=== PATIENT | female | born 1965 | race Caucasian/White ===

== ENCOUNTER 2016-09-05 17:55 | Emergency (ER) | payer MEDICAID ==
[~2016-09-05] VITALS: Ht 152.4 cm; Wt 47.0 kg
[2016-09-05 17:56] VITALS: Ht 152.4 cm; Wt 47.0 kg
[2016-09-05 18:47] LABS: ABNORMAL IP MESSAGE 1; BASOPHILS % 0.5 % (0.0-2.0); EOSINOPHILS # 0.1 10^3/ul (0.0-0.5); EOSINOPHILS % 1.9 % (0.0-7.0); HEMATOCRIT 38.8 % (37.0-47.0); HEMOGLOBIN 13.2 g/dl (12.0-16.0); LYMPHOCYTES # 0.5 10^3/ul (0.8-2.9); LYMPHOCYTES % 12.3 % (15.0-51.0); MEAN CORPUSCULAR HEMOGLOBIN 28.9 pg (29.0-33.0); MEAN CORPUSCULAR VOLUME 84.9 fl (82.0-101.0); MEAN PLATELET VOLUME 9.9 fl (7.4-10.4); MONOCYTE # 0.2 10^3/ul (0.3-0.9); MONOCYTES % 5.1 % (0.0-11.0); NEUTROPHILS % 79.9 % (39.0-77.0); PLATELET COUNT 309 10^3/UL (140-415); RED BLOOD COUNT 4.57 10^6/ul (4.20-5.40); RED CELL DISTRIBUTION WIDTH 11.9 % (11.5-14.5); WHITE BLOOD COUNT 3.7 10^3/ul (4.8-10.8)
[2016-09-05 18:50] LABS: ADD SCAN DIFF NO
[2016-09-05 18:52] LABS: ADD UMIC NO; UR ASCORBIC ACID NEGATIVE (NEGATIVE); UR BILIRUBIN (Dip) NEGATIVE (NEGATIVE); UR BLOOD (Dip) NEGATIVE (NEGATIVE); UR CLARITY CLEAR (CLEAR); UR COLOR STRAW (YELLOW); UR GLUCOSE (Dip) NEGATIVE (NEGATIVE); UR KETONES (Dip) NEGATIVE (NEGATIVE); UR LEUKOCYTE ESTERASE (Dip) NEGATIVE Leu/ul (NEGATIVE); UR NITRITE (Dip) NEGATIVE (NEGATIVE); UR SPECIFIC GRAVITY (Dip) 1.003 (1.003-1.030); UR TOTAL PROTEIN (Dip) NEGATIVE (NEGATIVE); UR UROBILINOGEN (Dip) NEGATIVE (NEGATIVE)
[2016-09-05 19:10] LABS: ALBUMIN 4.8 g/dl (3.3-4.9); BILIRUBIN,INDIRECT 0.2 mg/dl (0-1.1); BILIRUBIN,TOTAL 0.2 mg/dl (0.2-1.3); CALCIUM 9.3 mg/dl (8.4-10.2); CREATININE 0.82 mg/dl (0.44-1.00); POTASSIUM 3.7 mmol/L (3.5-5.1)
[2016-09-05 19:11] LABS: ALBUMIN/GLOBULIN RATIO 1.71; TOTAL PROTEIN 7.6 g/dl (6.1-8.1)
[2016-09-05] MEDS ORDERED: IBUP-1542 PO (19:26)
[2016-09-05] MEDS ORDERED: TRAM50TA2 PO (19:31)
--- NOTE | 2016-09-05 19:35 | ERD ---
ER Documentation Chief Complaint Date/Time DATE: 09/05/16 TIME: 19:32 Chief Complaint swollen glands @ neck area HPI This is a 50-year-old female presents to the ER with a swollen lymph nodes on her neck and entire body pain. Patient states that this is been going on for the last 2 days. Patient denies any cough or cold symptoms she denies any sore throat or ear pain. Patient denies any fevers or chills. She denies any night sweats or weight loss. Patient denies any abdominal pain she denies any nausea vomiting or diarrhea. Patient denies any trauma. Patient states that she has gotten regular primary care and has gotten her regular mammograms and other preventative exams. ROS 12 point review of systems was done, all negative except per HPI. Medications Home Meds Active Scripts Tramadol HCl (Tramadol HCl) 50 Mg Tablet, 50 MG PO Q4 Y for PAIN, #20 TAB Prov:PAULO BELCHERNA C 09/05/16 Ibuprofen* (Motrin*) 600 Mg Tab, 600 MG PO Q6, #30 TAB Prov:ADRIANNE BELCHER 09/05/16 Allergies Allergies: Coded Allergies: No Known Allergy (Unverified , 09/05/16) PMhx/Soc Medical and Surgical Hx: pt denies Medical Hx, pt denies Surgical Hx Hx Alcohol Use: No Hx Substance Use: No Hx Tobacco Use: No Smoking Status: Never smoker Physical Exam Vitals Vital Signs Date Time Temp Pulse Resp B/P Pulse Ox O2 Delivery O2 Flow Rate FiO2 09/05/16 17:56 99.5 81 19 124/57 97 Physical Exam GENERAL: The patient is well developed and appropriate for usual state of health , in no apparent distress. HEENT: Atraumatic. Conjunctivae are pink. Pupils equal, round, and reactive to light. Extraocular muscles are grossly intact. Bilateral tympanic membranes are clear with no evidence of erythema, effusion or dulling of the light reflex. The oropharynx is clear with no erythema or exudates. NECK: Anterior cervical chain, posterior cervical chain, occipital lymphadenopathy. CHEST: Clear to auscultation bilaterally. There are no rales, wheezes or rhonchi. HEART: Regular rate and rhythm. No murmurs, clicks, rubs or gallops. ABDOMEN: Soft, nontender and nondistended. NEURO: Alert and oriented. Result Diagram: 09/05/16 1832 09/05/16 1832 Results 24 hrs Laboratory Tests Test 09/05/16 18:27 09/05/16 18:32 Urine Color STRAW Urine Clarity CLEAR Urine pH 7.0 Urine Specific Stover 1.003 Urine Ketones NEGATIVEmg/dL Urine Nitrite NEGATIVEmg/dL Urine Bilirubin NEGATIVEmg/dL Urine Urobilinogen NEGATIVEmg/dL Urine Leukocyte Esterase NEGATIVELeu/ul Urine Hemoglobin NEGATIVEmg/dL Urine Glucose NEGATIVEmg/dL Urine Total Protein NEGATIVEmg/dl White Blood Count 3.710^3/ul Red Blood Count 4.5710^6/ul Hemoglobin 13.2g/dl Hematocrit 38.8% Mean Corpuscular Volume 84.9fl Mean Corpuscular Hemoglobin 28.9pg Mean Corpuscular Hemoglobin Concent 34.0g/dl Red Cell Distribution Width 11.9% Platelet Count 38310^3/UL Mean Platelet Volume 9.9fl Neutrophils % 79.9% Lymphocytes % 12.3% Monocytes % 5.1% Eosinophils % 1.9% Basophils % 0.5% Nucleated Red Blood Cells % 0.0/100WBC Neutrophils # 3.010^3/ul Lymphocytes # 0.510^3/ul Monocytes # 0.210^3/ul Eosinophils # 0.110^3/ul Basophils # 0.010^3/ul Nucleated Red Blood Cells # 0.010^3/ul Sodium Level 140mmol/L Potassium Level 3.7mmol/L Chloride Level 101mmol/L Carbon Dioxide Level 30mmol/L Anion Gap 13 Blood Urea Nitrogen 14mg/dl Creatinine 0.82mg/dl Glucose Level 116mg/dl Calcium Level 9.3mg/dl Total Bilirubin 0.2mg/dl Direct Bilirubin 0.00mg/dl Indirect Bilirubin 0.2mg/dl Aspartate Amino Transf (AST/SGOT) 30IU/L Alanine Aminotransferase (ALT/SGPT) 44IU/L Alkaline Phosphatase 96IU/L Total Protein 7.6g/dl Albumin 4.8g/dl Globulin 2.80g/dl Albumin/Globulin Ratio 1.71 Procedures/MDM This is a 50-year-old female presents to the ER with swollen lymph nodes and entire body pain. At this time there is no evidence of infection, anemia, electrolyte abnormality, urinary tract infection. Patient's physical examination is benign. This may be secondary to a viral process versus malignancy versus autoimmune disease. Patient is to follow-up with her primary care doctor within 1-2 days or return to ER sooner if symptoms worsen. She will be sent home with ibuprofen and tramadol for the pain. My medical decision making was shared with the patient she understands and agrees with plan. Departure Diagnosis: Primary Impression: Lymphadenopathy Condition: Stable Patient Instructions: Myalgias Additional Instructions: Call your primary care doctor TOMORROW for an appointment during the next 1-2 days.See the doctor sooner or return here if your condition worsens before your appointment time. EVERYTHING LOOKS NORMAL TODAY. IF LYMPH NODES CONTINUE TO BE SWOLLEN FURTHER TESTING NEEDS TO BE DONE. ALSO, PLEASE REMEMBER TO GET ROUTINE SCREENINGS SUCH MAMMOGRAM AND YEARLY PHYSICAL. ADRIANNE BELCHER Sep 05, 2016 19:35
== END 2016-09-05 19:40 | disposition home or self-care (01) ==
LOC: FTE 17:55
DX: R59.1 Generalized enlarged lymph nodes (principal)
CPT/HCPCS: 36415; 80053; 81003; 85025; Z7502; 99283

== ENCOUNTER 2016-09-12 21:51 | Emergency (ER) | payer MEDICAID ==
[~2016-09-12] VITALS: Wt 49.0 kg
[~2016-09-12 21:51] MED LIST: IBUP-1542 PO; TRAM50TA2 PO
[2016-09-13] MEDS ORDERED: HYDROCODONE/APAP (5/325) TAB PO ONE
--- NOTE | 2016-09-13 00:06 | ERD ---
ER Documentation Chief Complaint Date/Time DATE: 09/13/16 TIME: 00:02 Chief Complaint LEFT FOOT SWELLING/REDNESS AND FACIAL SWELLING X2WKS WAS SEEN 09/05 HPI 50-year-old female presents to emergency department for persistent redness and swelling of the left lower leg, patient was seen here one week ago for the same problem, patient also on the left patient swelling which has improved. Patient continues to have redness and swelling of the left lower leg, complains of pain on affected areas. Patient denies any fever or chills denies any trauma on affected area. Patient has redness and swelling on the left ankle area, medications were prescribed ibuprofen and tramadol with only mild relief. Patient denies any numbness or tingling. Patient denies any rash in other parts of the body. ROS All systems reviewed and are negative except as per history of present illness. Medications Home Meds Active Scripts Tramadol HCl (Tramadol HCl) 50 Mg Tablet, 50 MG PO Q4 Y for PAIN, #20 TAB Prov:ADRIANNE BELCHER 09/05/16 Ibuprofen* (Motrin*) 600 Mg Tab, 600 MG PO Q6, #30 TAB Prov:ADRIANNE BELCHER 09/05/16 Allergies Allergies: Coded Allergies: No Known Allergy (Unverified , 09/05/16) PMhx/Soc Medical and Surgical Hx: pt denies Medical Hx, pt denies Surgical Hx Hx Alcohol Use: No Hx Substance Use: No Hx Tobacco Use: No Smoking Status: Never smoker FmHx Family History: No coronary disease, No diabetes, No other Physical Exam Vitals Vital Signs Date Time Temp Pulse Resp B/P Pulse Ox O2 Delivery O2 Flow Rate FiO2 09/12/16 21:57 99.5 93 18 129/61 99 Physical Exam GENERAL: The patient is well developed and appropriate for usual state of health, in no apparent distress. CHEST: Clear to auscultation bilaterally. There are no rales, wheezes or rhonchi. HEART: Regular rate and rhythm. No murmurs, clicks, rubs or gallops. No S3 or S4. ABDOMEN: Soft, nontender and nondistended. Good bowel sounds. No rebound or guarding. No gross peritonitis. No gross organomegaly or masses. No Parish sign or McBurney point tenderness. BACK: No midline or flank tenderness. EXTREMITIES: Equal pulses bilaterally. There is no peripheral clubbing, cyanosis or edema. No focal swelling or erythema. Full range of motion. Grossly neurovascularly intact. NEURO: Alert and oriented. Cranial nerves 2-12 intact. Motor strength in all 4 extremities with 5/5 strength. Sensation grossly intact. Normal speech and gait. SKIN: Macular rash in the left ankle area with mild swelling noted, mild tenderness on palpation. No induration noted. No fluctuance noted. The skin is warm and dry. HEMATOLOGIC AND LYMPHATIC: There is no evidence of excessive bruising or lymphedema. No gross cervical, axillary, or inguinal lymphadenopathy. Result Diagram: 09/12/160 09/12/1619 Results 24 hrs Laboratory Tests Test 09/12/16 00:20 White Blood Count 4.310^3/ul Red Blood Count 4.0910^6/ul Hemoglobin 12.0g/dl Hematocrit 34.9% Mean Corpuscular Volume 85.3fl Mean Corpuscular Hemoglobin 29.3pg Mean Corpuscular Hemoglobin Concent 34.4g/dl Red Cell Distribution Width 12.4% Platelet Count 26465^3/UL Mean Platelet Volume 10.2fl Neutrophils % 84.8% Lymphocytes % 8.2% Monocytes % 4.9% Eosinophils % 1.4% Basophils % 0.2% Nucleated Red Blood Cells % 0.0/100WBC Neutrophils # 3.610^3/ul Lymphocytes # 0.410^3/ul Monocytes # 0.210^3/ul Eosinophils # 0.110^3/ul Basophils # 0.010^3/ul Nucleated Red Blood Cells # 0.010^3/ul Erythrocyte Sedimentation Rate 50mm/Hr Prothrombin Time 12.8Sec Prothrombin Time Ratio 1.0 INR International Normalized Ratio 0.96 Sodium Level 138mmol/L Potassium Level 3.8mmol/L Chloride Level 96mmol/L Carbon Dioxide Level 30mmol/L Anion Gap 16 Blood Urea Nitrogen 15mg/dl Creatinine 0.67mg/dl Glucose Level 114mg/dl Calcium Level 9.0mg/dl Total Bilirubin 0.3mg/dl Direct Bilirubin 0.00mg/dl Indirect Bilirubin 0.3mg/dl Aspartate Amino Transf (AST/SGOT) 26IU/L Alanine Aminotransferase (ALT/SGPT) 29IU/L Alkaline Phosphatase 86IU/L C-Reactive Protein 1.6mg/dl Total Protein 7.2g/dl Albumin 4.4g/dl Globulin 2.80g/dl Albumin/Globulin Ratio 1.57 Current Medications Medications (Trade) Dose Ordered Sig/Ken Route PRN Reason Start Time Stop Time Status Last Admin Dose Admin Acetaminophen/ Hydrocodone Bitart ([place] (5/325)) 1 tab ONCE ONCE PO 09/13/16 00:00 09/13/16 00:01 DC 09/13/16 01:31 Patient was given medication for pain here in emergency department, after treatment, patient verbalized feeling much better. Patient's pain is improved. Procedures/MDM Medical decision making: Patient's symptoms of a rash is nonspecific at this time, possibly vasculitis. No symptoms of any cellulitis, no DVT, no suspicion for any neurovascular compromise at this time. Patient has been sensation and circulation of affected area. Ultrasound does not show any DVT. Laboratory testing does not show any coagulopathies. Patient was given for prednisone, is advised to see complaint specialist for further evaluation or primary care doctor for further workup. At this time, no symptoms of sepsis, patient presents with similar number stable. Patient was also given stronger pain medication, was given [place] for severe pain. Patient is advised to return to emergency department for any worsening symptoms Departure Diagnosis: Primary Impression: Vasculitis of skin Condition: Stable STEPHANIA NUR NP Sep 13, 2016 00:06
[2016-09-13 00:32] LABS: ADD SCAN DIFF NO
[2016-09-13 00:35] LABS: ABNORMAL IP MESSAGE 1; BASOPHILS % 0.2 % (0.0-2.0); EOSINOPHILS # 0.1 10^3/ul (0.0-0.5); EOSINOPHILS % 1.4 % (0.0-7.0); HEMATOCRIT 34.9 % (37.0-47.0); LYMPHOCYTES # 0.4 10^3/ul (0.8-2.9); LYMPHOCYTES % 8.2 % (15.0-51.0); MEAN CORPUSCULAR HEMOGLOBIN 29.3 pg (29.0-33.0); MEAN CORPUSCULAR HGB CONC 34.4 g/dl (32.0-37.0); MEAN CORPUSCULAR VOLUME 85.3 fl (82.0-101.0); MEAN PLATELET VOLUME 10.2 fl (7.4-10.4); MONOCYTE # 0.2 10^3/ul (0.3-0.9); MONOCYTES % 4.9 % (0.0-11.0); NEUTROPHIL # 3.6 10^3/ul (1.6-7.5); NEUTROPHILS % 84.8 % (39.0-77.0); PLATELET COUNT 269 10^3/UL (140-415); RED BLOOD COUNT 4.09 10^6/ul (4.20-5.40); RED CELL DISTRIBUTION WIDTH 12.4 % (11.5-14.5); WHITE BLOOD COUNT 4.3 10^3/ul (4.8-10.8)
[2016-09-13 00:54] LABS: ALBUMIN 4.4 g/dl (3.3-4.9); ALBUMIN/GLOBULIN RATIO 1.57; BILIRUBIN,INDIRECT 0.3 mg/dl (0-1.1); BILIRUBIN,TOTAL 0.3 mg/dl (0.2-1.3); CREATININE 0.67 mg/dl (0.44-1.00); INR 0.96; POTASSIUM 3.8 mmol/L (3.5-5.1); PROTIME 12.8 Sec (12.2-14.2); TOTAL PROTEIN 7.2 g/dl (6.1-8.1)
[2016-09-13 02:04] LABS: C-REACTIVE PROTEIN 1.6 mg/dl (0.0-0.9)
[2016-09-13] MEDS ORDERED: PRED50TA PO (02:17)
[2016-09-13] MEDS ORDERED: HYDR-906 PO (02:17)
[2016-09-13 02:32] VITALS: BP 119/57; PULSE 89; RESP 18; TEMP 99.2
--- NOTE | 2016-09-13 08:02 | RADRPT ---
PROCEDURE: US Lower extremity Venous. CLINICAL INDICATION: Left leg swelling TECHNIQUE: Multiple sonographic images of the left lower extremity deep venous system was obtained utilizing grayscale, color-flow, compressive sonography and doppler imaging with augmentation. COMPARISON: None. FINDINGS: There is normal compressibility / flow within the left common femoral, femoral and popliteal veins. The visualized deep veins of the calf are unremarkable. RPTAT:HJJR IMPRESSION: No sonographic evidence for deep venous thrombosis of the left lower extremity. Physician Luc Date Time Electronically viewed and signed by Physician Luc on 09/13/2016 00:40 /
== END 2016-09-13 02:33 | disposition home or self-care (01) ==
LOC: FTE 21:51
DX: L95.9 Vasculitis limited to the skin, unspecified (principal)
CPT/HCPCS: 80053; 85025; 85610; 85651; 86140; 93971; Z7502; Z7610